=== PATIENT | female | born 1995 | race African-American/Black ===

== ENCOUNTER 2024-03-08 17:54 | Emergency (ER) | payer MEDICAID ==
[~2024-03-08] VITALS: Ht 165.1 cm; Wt 53.5 kg
[2024-03-08 18:11] VITALS: O2SAT 100
[2024-03-08] MEDS ORDERED: PENICILLIN G BENZATHINE 2,400,000 UNITS/4ML SYR IM ONE (21:45)
[2024-03-08] MEDS: PENICILLIN G BENZATHINE 1,200,000 UNITS/2ML SYR IM NR (22:00)
[2024-03-08 22:39] VITALS: BP 132/66; PULSE 66; RESP 18; TEMP 36.66960; O2SAT 98
== END 2024-03-08 22:30 | disposition home or self-care (01) ==
LOC: ER 17:54
DX: A53.9 Syphilis, unspecified (principal); F41.9 Anxiety disorder, unspecified; J45.909 Unspecified asthma, uncomplicated; Z11.3 Encounter for screening for infections with a predominantly sexual mode of transmission
CPT/HCPCS: 99283; 81025; 96372; J0561